=== PATIENT | female | born 1985 | race Caucasian/White ===

== ENCOUNTER 2019-11-11 19:54 | Emergency (ER) | payer MEDICAID ==
[~2019-11-11] VITALS: Ht 170.2 cm; Wt 111.4 kg
[2019-11-11 20:09] VITALS: Ht 170.2 cm; Wt 111.4 kg
[2019-11-11 21:33] VITALS: BP 115/76
== END 2019-11-11 21:33 | disposition home or self-care (01) ==
LOC: ED 19:54
DX: T24.001A Burn of unspecified degree of unspecified site of right lower limb, except ankle and foot, initial encounter (principal); T24.002A Burn of unspecified degree of unspecified site of left lower limb, except ankle and foot, initial encounter; W40.8XXA Explosion of other specified explosive materials, initial encounter; Y93.89 Activity, other specified; Y92.89 Other specified places as the place of occurrence of the external cause; Y99.8 Other external cause status
CPT/HCPCS: 90715; J1885

== ENCOUNTER 2019-11-13 17:39 | Emergency (ER) | payer MEDICAID ==
[~2019-11-13] VITALS: Ht 170.2 cm; Wt 110.2 kg
[2019-11-13 17:49] VITALS: Ht 170.2 cm; Wt 110.2 kg
[2019-11-13 18:15] LABS: BASOPHIL % 0.2 % (0-2); PLATELET COUNT 363 x10^3mcL (130-400); RED CELL DISTRIBUTION WIDTH 13.8 % (11.5-14.5)
[2019-11-13 18:27] LABS: CALCIUM 8.7 mg/dL (8.5-10.1); CARBON DIOXIDE 28.9 mmol/L (21-32); CHLORIDE SERUM 101 mmol/L (98-107); CREATININE SERUM 0.7 mg/dL (0.6-1.0); GFR1 > 60 mL/min; GLUCOSE SERUM 100 mg/dL (74-106); SODIUM SERUM 139 mmol/L (136-145)
[2019-11-13 18:31] LABS: ALBUMIN 3.7 g/dL (3.4-5.0); ALKALINE PHOSPHATASE 122 U/L (46-116); ALT/SGPT 127 U/L (14-59); AST/SGOT 75 U/L (15-37); BILIRUBIN TOTAL 0.3 mg/dL (0.20-1.00); LIPASE 188 IU/L (73-393); TOTAL PROTEIN, SERUM 7.6 g/dL (6.4-8.2)
[2019-11-13 21:39] VITALS: BP 153/93
== END 2019-11-13 21:39 | disposition home or self-care (01) ==
LOC: ED 17:39
DX: K29.70 Gastritis, unspecified, without bleeding (principal); I10 Essential (primary) hypertension
CPT/HCPCS: Q0162